=== PATIENT | female | born 1975 | race Two or more races ===

== ENCOUNTER 2021-12-05 09:15 | Inpatient (IN) | payer OTHER ==
[~2021-12-05] VITALS: Ht 157.5 cm; Wt 90.7 kg
[2021-12-05] MEDS ORDERED: BENICAR HCT 401 EAC1 PO (12:15)
[2021-12-05] MEDS ORDERED: PEPCID AC20 MG PO (12:16)
[2021-12-05] MEDS ORDERED: PROBIOTIC1 EAC4 PO (12:16)
[2021-12-05] MEDS ORDERED: PROTONIX40 MG PO (12:16)
[2021-12-05] MEDS ORDERED: CARDURA1 MG PO (12:17)
[2021-12-05] MEDS ORDERED: MITIGARE0.6 MG PO (12:17)
[2021-12-05] MEDS ORDERED: VITAMIN C PO (12:17)
[2021-12-10] MEDS ORDERED: MONTELUKAST SOD10 MG (08:18)
[2021-12-10] MEDS ORDERED: CARVEDILOL25 M1 (08:18)
[2021-12-10] MEDS ORDERED: VITAMIN C100 MG PO (08:19)
[2021-12-13] MEDS ORDERED: PROTONIX40 MG PO (12:58)
[2021-12-13] MEDS ORDERED: MIRALAX17 GM PO (12:59)
== END 2021-12-13 15:16 | disposition home or self-care (01) | DRG 330 ==
LOC: O/R 12-07 07:30 → SURH 12-07 07:30
PROVIDERS: ADMIT Surgery; ATTEND Surgery
PROC: 0DBP4ZZ Excision of Rectum, Percutaneous Endoscopic Approach (ICD-10-PCS; 2021-12-07)
PROC: 0DN84ZZ Release Small Intestine, Percutaneous Endoscopic Approach (ICD-10-PCS; 2021-12-07)
PROC: 0DT84ZZ Resection of Small Intestine, Percutaneous Endoscopic Approach (ICD-10-PCS; 2021-12-07)
PROC: 0DTN4ZZ Resection of Sigmoid Colon, Percutaneous Endoscopic Approach (ICD-10-PCS; principal; 2021-12-07 12:30)
PROC: 4A12X4Z Monitoring of Cardiac Electrical Activity, External Approach (ICD-10-PCS; 2021-12-08)
DX: K57.30 Diverticulosis of large intestine without perforation or abscess without bleeding (principal); K91.89 Other postprocedural complications and disorders of digestive system; K56.7 Ileus, unspecified; R09.02 Hypoxemia; K66.0 Peritoneal adhesions (postprocedural) (postinfection); R10.9 Unspecified abdominal pain; K58.9 Irritable bowel syndrome, unspecified; Z20.822 Contact with and (suspected) exposure to COVID-19; I11.9 Hypertensive heart disease without heart failure